=== PATIENT | male | born 1985 | race Caucasian/White ===

== ENCOUNTER 2020-08-24 23:15 | Emergency (ER) | payer SELFPAY ==
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
[2020-08-24] MEDS ORDERED: ONDANSETRON 4 MG (ZOFRAN) ORAL DISSOLVE TAB PO STA (23:47)
[2020-08-25] MEDS ORDERED: oxyCODONE/APAP 5/325MG (PERCOCET 5) TABLET PO ONE
[2020-08-25 01:18] VITALS: BP 109/68
[2020-08-25] MEDS ORDERED: ACHD5005 PO (01:21)
[2020-08-25] MEDS ORDERED: AMOX-358 PO (01:21)
[2020-08-25] MEDS ORDERED: AUGMENTIN 875 MG TAB (AMOXICILLIN/CLAVULANATE) PO SCH (01:30)
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
== END 2020-08-25 01:27 | disposition home or self-care (01) ==
LOC: ER FS 23:17
DX: S02.32XA Fracture of orbital floor, left side, initial encounter for closed fracture (principal); S02.31XA Fracture of orbital floor, right side, initial encounter for closed fracture; S06.0X0A Concussion without loss of consciousness, initial encounter; S01.81XA Laceration without foreign body of other part of head, initial encounter; Y04.2XXA Assault by strike against or bumped into by another person, initial encounter
CPT/HCPCS: 70450; 70486; 72125